=== PATIENT | female | born 1985 | race Caucasian/White ===

== ENCOUNTER 2018-08-07 14:50 | Emergency (ER) | payer BC, MEDICAID ==
[2018-08-07] MEDS ORDERED: SODIUM CHLORIDE 0.9% 1000ML 1,000 ML IVS ONE (15:28)
--- NOTE | 2018-08-07 15:34 | ED.PDOC ---
History of Present Illness - General Chief Complaint: CONFECTIONERY MAKER Problem Stated Complaint: and spotting Time Seen by Provider: 08/07/18 15:04 Source: patient Exam Limitations: no limitations - History of Present Illness Initial Comments: Sana Hastings 32 y/o female [id number] LMP-30 May 2018 EGA-9-10 weeks came today with vaginal spotting and intermittent lower dull lower abdominal pain.Denies chronic medical problems. Timing/Duration: this morning Quality: moderate, dull, intermittent Onset Location: suprapubic Radiation: none Activites at Onset: none Prior abdominal problems: none Sexual intercourse history: single partner Improving Factors: nothing Worsening Factors: nothing Associated Symptoms: denies symptoms Allergies/Adverse Reactions: Allergies NO KNOWN ALLERGY Allergy (Verified 08/07/18 15:12) Review of Systems - Review of Systems Constitutional: States: no symptoms reported EENTM: States: no symptoms reported Respiratory: States: no symptoms reported Cardiology: States: no symptoms reported Gastrointestinal/Abdominal: States: see HPI Genitourinary: States: no symptoms reported Musculoskeletal: States: no symptoms reported All other Systems: Reviewed and Negative, No Change from Baseline Past Medical History (General) - Patient Medical History Hx Seizures: No Hx Stroke: No Hx Asthma: No Hx of COPD: No Hx Thyroid Disease: No Surgical History: other - - Social History Hx Tobacco Use: Yes Hx Chewing Tobacco Use: No Hx Alcohol Use: No Hx Substance Use: No Hx Substance Use Treatment: No Hx Physical Abuse: No Hx Emotional Abuse: No - Female History Hx Last Menstrual Period: 05/30/18 Patient : Yes Family Medical History - Family History Mother Family History: No Known Hx Family Hypertension: Yes - mom Physical Exam - Physical Exam General Appearance: Alert, Comfortable, No apparent distress Eyes, Ears, Nose, Throat Exam: normal ENT inspection Neck: non-tender, supple Cardiovascular/Respiratory: regular rate, rhythm, normal peripheral pulses, normal breath sounds Gastrointestinal/Abdominal: normal bowel sounds, non tender, soft, no organomegaly, other - gravid uterus suprapubic Back Exam: no CVA tenderness, no vertebral tenderness Extremity: no pedal edema, no calf tenderness Neurologic: alert, oriented x 3 Skin Exam: normal color, warm/dry Lymphatic: no adenopathy Progress - Progress Progress: 08/07/18 15:36 Vital Signs - 8 hr 08/07/18 15:13 Temperature 98.9 F Pulse Rate [ 92 H right brachial] Respiratory 16 Rate Blood Pressure 113/49 [right brachial ] O2 Sat by Pulse 99 Oximetry - Results/Orders Results/Orders: Vital Signs - 8 hr 08/07/18 08/07/18 15:13 16:59 Temperature 98.9 F 98.6 F Pulse Rate [ 92 H 87 right brachial] Respiratory 16 16 Rate Blood Pressure 113/49 105/60 [right brachial ] O2 Sat by Pulse 99 99 Oximetry 08/07/18 15:28 IV Care:Saline Lock per Protoc QSHIFT Laboratory Results - last 24 hr 08/07/18 08/07/18 08/07/18 15:40 15:40 15:40 WBC 8.8 RBC 3.93 L Hgb 12.2 Hct 36.9 MCV 93.9 MCH 31.1 H MCHC 33.2 RDW 13.0 Plt Count 257 MPV 8.7 Absolute Neuts (auto) 6.40 Absolute Lymphs (auto) 1.60 Absolute Monos (auto) 0.70 Absolute Eos (auto) 0.10 Absolute Basos (auto) 0.00 Neutrophils % 72.0 Lymphocytes % 17.8 L Monocytes % 8.2 Eosinophils % 1.6 Basophils % 0.4 Sodium 136 Potassium 3.9 Chloride 104 Carbon Dioxide 24 Anion Gap 11.9 L BUN 15 Creatinine 0.59 L BUN/Creatinine Ratio 25.4 H Random Glucose 81 Serum Osmolality 271.8 L Calcium 9.1 Serum HCG, Qual Positive Beta HCG, Quant 773714.0 H Urine Color Urine Appearance Urine pH Ur Specific [place] Urine Protein Urine Glucose (UA) Urine Ketones Urine Blood Urine Nitrite Urine Bilirubin Urine Urobilinogen Ur Leukocyte Esterase Urine RBC Urine WBC Ur Epithelial Cells Urine Bacteria Patient ABO/Rh 08/07/18 08/07/18 15:40 16:05 WBC RBC Hgb Hct MCV MCH MCHC RDW Plt Count MPV Absolute Neuts (auto) Absolute Lymphs (auto) Absolute Monos (auto) Absolute Eos (auto) Absolute Basos (auto) Neutrophils % Lymphocytes % Monocytes % Eosinophils % Basophils % Sodium Potassium Chloride Carbon Dioxide Anion Gap BUN Creatinine BUN/Creatinine Ratio Random Glucose Serum Osmolality Calcium Serum HCG, Qual Beta HCG, Quant Urine Color Yellow Urine Appearance Clear Urine pH 6.0 Ur Specific Franklin 1.020 Urine Protein Negative Urine Glucose (UA) Negative Urine Ketones Negative Urine Blood Moderate H Urine Nitrite Negative Urine Bilirubin Negative Urine Urobilinogen 0.2 Ur Leukocyte Esterase Trace H Urine RBC 1-3 Urine WBC 0-1 Ur Epithelial Cells 3-5 Urine Bacteria 0 Patient ABO/Rh O POSITIVE Discuss all test result with patient and OB sono - EKG/XRAY/CT Xray Comments: OB-Son-9-10 wks EGA;IUP;no hemorrhage;FHT-179 bpm Departure - Departure Clinical Impression: Vaginal spotting, 10 weeks gestation of Time of Disposition: 17:25 Disposition: Discharge to Home or Self Care Condition: Good Departure Forms: ED Discharge - Pt. 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
--- NOTE | 2018-08-07 16:15 | US ---
EXAM DESCRIPTION: OB ,Early (0-14wks): Ultrasound. CLINICAL HISTORY: 32 years Female vaginal spotting. Obstetrical history unknown. LMP 05/30/2018. EGA 9 weeks and 6 days. [place] 03/06/2019. COMPARISON: None. TECHNIQUE: Transpelvic scanning through the urine filled bladder: Endovaginal scannin-dimensional and Doppler modes. FINDINGS: Uterus: 10.9 x 8.4 cm.. Minimal fluid in the cervix. Gestational sac: Oval-shaped and well-defined. AFV: Subjectively normal. pole: Mean crown-rump length is almost 3 cm corresponding to EGA 9 weeks and 6 days. Yolk sac: 4.3 mm. Subchorionic hemorrhage: Heterogeneous myometrium but no subchorionic hemorrhage. heart tones: Mean value of 179 bpm. Cul-de-sac: No fluid. Comments: EGA 9 weeks and 6 days corresponds to [place] 03/06/2019. Right ovary 2.1 x 2.0 x 1.8 cm. 4.0 mL. Normal waveform and color Doppler vascularity. No dominant cyst.. No adnexal mass or free fluid. Left ovary not visualized. cm. No dominant cyst. No adnexal mass or free fluid. IMPRESSION: 1. Single living intrauterine gestation in a well-defined gestational sac. No subchorionic hemorrhage. EGA is 9 weeks and 6 days with [place] 03/06/2019. This is exact agreement with EGA by menstrual dates. Minimal fluid in the maternal cervix. No fluid in the cul-de-sac. Normal size of the yolk sac. 2. Right ovary is unremarkable in size and vascularity. No dominant solid mass or cyst in the adnexa. Left ovary was not seen. Electronically signed by: Jonnie Skinner MD 08/07/2018 4:13 PM CDT
[2018-08-07 17:00] VITALS: O2SAT 99
[2018-08-07 18:13] VITALS: BP 110/63; TEMP 98.4
== END 2018-08-07 18:10 | disposition home or self-care (01) ==
LOC: ER 14:50
DX: O26.851 Spotting complicating pregnancy, first trimester (principal); Z3A.10 10 weeks gestation of pregnancy; Z87.891 Personal history of nicotine dependence
CPT/HCPCS: 36415; 76813; 80048; 81001; 84702; 84703; 85025; 86900; 86901; J7030